=== PATIENT | male | born 1960 | race Caucasian/White ===

== ENCOUNTER 2018-02-22 23:11 | Emergency (ER) | payer MEDICAID, MEDICARE ==
[~2018-02-22] VITALS: Ht 170.2 cm; Wt 82.6 kg
[2018-02-22 23:26] VITALS: BP 120/84
[2018-02-23] MEDS ORDERED: IPRATROPIUM NEB FS 0.5 MG/2.5 ML AMPUL.NEB NEB ONE
[2018-02-23] MEDS ORDERED: ALBUTEROL FS 2.5 MG/3 ML VIAL.NEB NEB ONE
[2018-02-23] MEDS ORDERED: ACETAMINOPHEN ES 500 MG TABLET PO ONE
[2018-02-23] MEDS ORDERED: IPRATROPIUM NEB FS 0.5 MG/2.5 ML AMPUL.NEB ONE (00:21)
[2018-02-23] MEDS ORDERED: ALBUTEROL FS 2.5 MG/3 ML VIAL.NEB ONE (00:21)
--- NOTE | 2018-02-23 00:21 | NUR ---
RT AT BEDSIDE TO GIVE HHN TX.
[2018-02-23] MEDS ORDERED: ACETAMINOPHEN ES 500 MG TABLET ONE (00:29)
== END 2018-02-23 01:28 | disposition home or self-care (01) ==
LOC: ER 23:17
DX: J44.9 Chronic obstructive pulmonary disease, unspecified (principal); M94.0 Chondrocostal junction syndrome [Tietze]; F41.9 Anxiety disorder, unspecified; I25.2 Old myocardial infarction; I10 Essential (primary) hypertension; I25.10 Atherosclerotic heart disease of native coronary artery without angina pectoris; K21.9 Gastro-esophageal reflux disease without esophagitis; F32.9 Major depressive disorder, single episode, unspecified; Z59.0 Homelessness; F17.299 Nicotine dependence, other tobacco product, with unspecified nicotine-induced disorders